=== PATIENT | male | born 1970 | race Caucasian/White ===

== ENCOUNTER 2018-11-08 12:35 | Emergency (ER) | payer OTHER ==
[~2018-11-08] VITALS: Ht 175.3 cm; Wt 99.8 kg
[2018-11-08] MEDS ORDERED: NORCO 5-325 TA1 EAC1 PO (13:14)
[2018-11-08] MEDS ORDERED: MEDROLDOSEPACK PO (13:14)
[2018-11-08] MEDS ORDERED: ZANAFLEX4 MG PO (13:14)
[2018-11-08 14:48] VITALS: BP 136/80
== END 2018-11-08 14:49 | disposition home or self-care (01) ==
LOC: M.ERS 12:35
DX: S39.012A Strain of muscle, fascia and tendon of lower back, initial encounter (principal); M54.41 Lumbago with sciatica, right side; M54.42 Lumbago with sciatica, left side; F41.9 Anxiety disorder, unspecified; F31.9 Bipolar disorder, unspecified; F17.210 Nicotine dependence, cigarettes, uncomplicated; Z88.6 Allergy status to analgesic agent; X50.9XXA Other and unspecified overexertion or strenuous movements or postures, initial encounter; Y93.89 Activity, other specified; Y92.89 Other specified places as the place of occurrence of the external cause; Y99.8 Other external cause status

== ENCOUNTER 2018-11-13 11:16 | Emergency (ER) | payer OTHER ==
[~2018-11-13] VITALS: Ht 175.3 cm; Wt 99.8 kg
[~2018-11-13 11:16] MED LIST: MEDROLDOSEPACK PO; NORCO 5-325 TA1 EAC1 PO; ZANAFLEX4 MG PO
[2018-11-13] MEDS ORDERED: NORCO 5-325 TA1 EAC1 PO (11:49)
[2018-11-13] MEDS ORDERED: ZANAFLEX4 MG PO (11:49)
[2018-11-13 12:28] VITALS: BP 108/80
== END 2018-11-13 12:29 | disposition home or self-care (01) ==
LOC: M.ERS 11:16
DX: M54.5 Low back pain (principal); G89.29 Other chronic pain; F41.9 Anxiety disorder, unspecified; F31.9 Bipolar disorder, unspecified; Z88.6 Allergy status to analgesic agent

== ENCOUNTER 2018-12-16 09:26 | Emergency (ER) | payer OTHER ==
[~2018-12-16] VITALS: Ht 175.3 cm; Wt 102.1 kg
[2018-12-16] MEDS ORDERED: NORCO 5-325 TA1 EAC1 PO (11:12)
[2018-12-16 11:54] VITALS: BP 138/88
== END 2018-12-16 11:55 | disposition home or self-care (01) ==
LOC: M.ERS 09:26
DX: S93.692A Other sprain of left foot, initial encounter (principal); F17.200 Nicotine dependence, unspecified, uncomplicated; F31.9 Bipolar disorder, unspecified; F41.9 Anxiety disorder, unspecified; Z88.6 Allergy status to analgesic agent; W11.XXXA Fall on and from ladder, initial encounter; Y92.89 Other specified places as the place of occurrence of the external cause; Y93.89 Activity, other specified; Y99.8 Other external cause status

== ENCOUNTER 2019-01-20 18:49 | Emergency (ER) | payer OTHER ==
[~2019-01-20] VITALS: Ht 175.3 cm; Wt 102.1 kg
[2019-01-20] MEDS ORDERED: HYDROCODON-ACE1 EAC8 PO (20:08)
[2019-01-20 20:28] VITALS: BP 155/97
== END 2019-01-20 20:28 | disposition home or self-care (01) ==
LOC: M.ERS 18:49
DX: M25.462 Effusion, left knee (principal); F31.9 Bipolar disorder, unspecified; F41.9 Anxiety disorder, unspecified; F17.200 Nicotine dependence, unspecified, uncomplicated; Z86.14 Personal history of Methicillin resistant Staphylococcus aureus infection; Z88.6 Allergy status to analgesic agent; Z88.8 Allergy status to other drugs, medicaments and biological substances

== ENCOUNTER 2019-03-02 14:09 | Inpatient (IN) | payer OTHER ==
[~2019-03-02] VITALS: Ht 152.4 cm; Wt 90.7 kg
[~2019-03-02 14:09] MED LIST changes: +HYDROCODON-ACE1 EAC8 PO
[2019-03-02 14:20] VITALS: BP 186/86
[2019-03-02 14:40] LABS: ABSOLUTE BASOPHILS 0.1 thou/uL (0.0-0.2); ABSOLUTE MONOCYTES 0.6 thou/uL (0.0-1.2); ABSOLUTE NEUTROPHILS 7.6 thou/uL (1.6-8.1); BASOPHILS 1.3 %; EOSINOPHILS 0.2 %; HEMATOCRIT 44.1 % (42.0-52.0); LYMPHOCYTES 19.5 %; MCH 29.2 pg (26.0-34.0); MCHC 34.1 g/dL (28.0-37.0); MCV 85.6 fL (80.0-100.0); MONOCYTES 5.8 %; MPV 7.2 fl. (7.2-11.1); NUCLEATED RBCS 0 /100WBC; PLATELET COUNT* 286 thou/uL (150-400); POLYS 73.2 %; RBC 5.15 mil/uL (4.50-6.00); RDW-CV 13.1 % (10.5-14.5); WBC 10.3 thou/uL (4.0-11.0)
[2019-03-02 14:49] LABS: APTT 23.8 Seconds (25.0-31.3)
[2019-03-02 14:53] LABS: CALCIUM 9.1 mg/dL (8.5-10.1); CREATININE 0.8 mg/dL (0.6-1.3); POTASSIUM 3.8 mmol/L (3.5-5.1)
[2019-03-02 14:55] LABS: URINE BLOOD 3+ (Negative); URINE CLARITY CLOUDY; URINE COLOR YELLOW; URINE GLUCOSE-RANDOM NEGATIVE (Negative); URINE KETONES TRACE (Negative); URINE LEUKOCYTES-REFLEX NEGATIVE (Negative); URINE PROTEIN 1+ (Negative)
[2019-03-02 14:57] LABS: ALBUMIN 3.4 g/dL (3.4-5.0); TOTAL BILIRUBIN 0.4 mg/dL (<0.1-1.0); TOTAL PROTEIN 6.2 g/dL (6.4-8.2)
[2019-03-02 14:59] LABS: ICTOTEST (BILI CONFIRMATORY) Negative (Negative); URINE BILIRUBIN 1+ (Negative); URINE NITRITE-REFLEX POSITIVE (Negative)
[2019-03-02 15:16] LABS: MUCUS 4-6 Moderate strn/LPF (None Seen); URINE RBC >20 Many /HPF (0-2)
[2019-03-02 15:17] LABS: URINE WBC-REFLEX 0-5 Rare /HPF (0-5)
[2019-03-02 15:18] LABS: BACTERIA-REFLEX 1-9 Few /HPF (None Seen); CASTS None Seen /LPF (None Seen); CRYSTALS None Seen /LPF (None Seen); SQUAMOUS NONE SEEN /LPF (0-3)
[2019-03-02 16:15] VITALS: BP 140/77
[2019-03-02 16:38] LABS: AMP/METHAMP Negative (Negative); BARBITURATES Negative (Negative); BENZODIAZEPINES POSITIVE (Negative); COCAINE Negative (Negative); METHADONE Negative (Negative); OPIATES POSITIVE (Negative); PCP Negative (Negative); THC POSITIVE (Negative)
[2019-03-02 17:28] VITALS: BP 137/87
[2019-03-03 00:20] VITALS: BP 119/60
[2019-03-03 04:13] LABS: ABSOLUTE BASOPHILS 0.1 thou/uL (0.0-0.2); ABSOLUTE EOSINOPHILS 0.2 thou/uL (0.0-0.7); ABSOLUTE LYMPHOCYTES 2.4 thou/uL (0.8-5.3); ABSOLUTE MONOCYTES 0.6 thou/uL (0.0-1.2); ABSOLUTE NEUTROPHILS 5.3 thou/uL (1.6-8.1); BASOPHILS 0.6 %; HEMATOCRIT 40.1 % (42.0-52.0); HEMOGLOBIN 13.7 gm/dL (14.0-18.0); LYMPHOCYTES 28.3 %; MCH 29.1 pg (26.0-34.0); MCHC 34.1 g/dL (28.0-37.0); MCV 85.4 fL (80.0-100.0); MONOCYTES 6.7 %; MPV 7.2 fl. (7.2-11.1); NUCLEATED RBCS 0 /100WBC; PLATELET COUNT* 273 thou/uL (150-400); POLYS 62.4 %; RDW-CV 13.1 % (10.5-14.5); WBC 8.5 thou/uL (4.0-11.0)
[2019-03-03 04:32] LABS: CALCIUM 8.4 mg/dL (8.5-10.1); CREATININE 0.8 mg/dL (0.6-1.3); POTASSIUM 3.6 mmol/L (3.5-5.1)
[2019-03-03 07:50] VITALS: BP 145/83
[2019-03-03] MEDS ORDERED: NORCO 5-325 TA1 EAC1 PO ×2 (12:24→12:31)
[2019-03-03] MEDS ORDERED: FLOMAX0.4 MG PO ×2 (12:24→12:31)
[2019-03-03 12:41] VITALS: BP 145/83
== END 2019-03-03 12:54 | disposition home or self-care (01) | DRG 690 ==
LOC: M.ERS 14:09 → M.ORTHSURG 15:34 → M.TBA-ER 15:34 → M.ORTHSURG 16:28
PROVIDERS: Nurse Practitioner Family; ADMIT Internal Medicine
DX: N13.6 Pyonephrosis (principal); F41.9 Anxiety disorder, unspecified; F31.9 Bipolar disorder, unspecified; F17.210 Nicotine dependence, cigarettes, uncomplicated; G89.29 Other chronic pain; M54.9 Dorsalgia, unspecified; Z87.442 Personal history of urinary calculi; Z23 Encounter for immunization; Z86.14 Personal history of Methicillin resistant Staphylococcus aureus infection; Z88.6 Allergy status to analgesic agent; Z88.8 Allergy status to other drugs, medicaments and biological substances; Z79.899 Other long term (current) drug therapy

== ENCOUNTER 2019-03-04 10:26 | Inpatient (IN) | payer OTHER ==
[~2019-03-04] VITALS: Ht 175.3 cm; Wt 90.7 kg
[~2019-03-04 10:26] MED LIST changes: +FLOMAX0.4 MG PO
[2019-03-04 10:44] VITALS: BP 139/85
[2019-03-04 11:50] LABS: URINE BILIRUBIN NEGATIVE (Negative); URINE BLOOD TRACE (Negative); URINE CLARITY CLEAR; URINE COLOR YELLOW; URINE GLUCOSE-RANDOM NEGATIVE (Negative); URINE KETONES NEGATIVE (Negative); URINE LEUKOCYTES-REFLEX TRACE (Negative); URINE NITRITE-REFLEX NEGATIVE (Negative); URINE PROTEIN NEGATIVE (Negative); URINE UROBILINOGEN 0.2 E.U./dl (0.2-1.0)
[2019-03-04 12:02] LABS: BACTERIA-REFLEX 1-9 Few /HPF (None Seen); CASTS None Seen /LPF (None Seen); CRYSTALS None Seen /LPF (None Seen); SQUAMOUS 0-3 Few /LPF (0-3); URINE RBC 0-2 Rare /HPF (0-2); URINE WBC-REFLEX 0-5 Rare /HPF (0-5)
[2019-03-04 12:27] LABS: ABSOLUTE LYMPHOCYTES 1.7 thou/uL (0.8-5.3); ABSOLUTE MONOCYTES 0.6 thou/uL (0.0-1.2); ABSOLUTE NEUTROPHILS 6.9 thou/uL (1.6-8.1); BASOPHILS 0.2 %; EOSINOPHILS 0.5 %; HEMOGLOBIN 14.4 gm/dL (14.0-18.0); LYMPHOCYTES 18.6 %; MCH 29.2 pg (26.0-34.0); MCHC 34.2 g/dL (28.0-37.0); MCV 85.2 fL (80.0-100.0); MONOCYTES 6.3 %; NUCLEATED RBCS 0 /100WBC; PLATELET COUNT* 276 thou/uL (150-400); POLYS 74.4 %; RBC 4.92 mil/uL (4.50-6.00); WBC 9.3 thou/uL (4.0-11.0)
[2019-03-04 12:36] LABS: CALCIUM 8.6 mg/dL (8.5-10.1); CREATININE 0.7 mg/dL (0.6-1.3); POTASSIUM 3.7 mmol/L (3.5-5.1)
[2019-03-04 12:40] LABS: ALBUMIN 3.2 g/dL (3.4-5.0); TOTAL BILIRUBIN 0.4 mg/dL (<0.1-1.0)
--- NOTE | 2019-03-04 13:21 | NUR ---
FLOR NOTIFIED UPON PT RETURN FROM CT. PT CONNECTED TO BP AND PULSE OX MONITOR HE WAS PRIOR TO CT
[2019-03-04 15:57] VITALS: BP 137/62
[2019-03-04 16:22] VITALS: BP 144/71
--- NOTE | 2019-03-04 16:55 | NUR ---
PT ADMITTED WITH KIDNEY STONE. PT C/O PAIN, MEDS GIVEN ORDERED. FALL RISK PRECAUTIONS IN PLACE. HOURLY ROUNDING COMPLETED. WILL CONTINUE TO MONITOR.
[2019-03-04 20:40] VITALS: BP 129/69
--- NOTE | 2019-03-05 04:54 | NUR ---
PATIENT HAS REMAINED ALERT AND ORIENTED X 4 THROUGHOUT THE SHIFT AND RESTING QUIETLY ON HOURLY ROUNDS. NPO AT MIDNIGHT. CONSENT FOR UROLOGY PROCEDURE COMPLETED. URINE HAS BEEN STRAINED WITHOUT STONES RETRIEVED. MEDICATED FOR PAIN Q4H TO GOOD EFFECT. VITAL SIGNS STABLE. CONTINUE TO MONITOR.
[2019-03-05 05:15] LABS: ABSOLUTE EOSINOPHILS 0.2 thou/uL (0.0-0.7); ABSOLUTE LYMPHOCYTES 2.6 thou/uL (0.8-5.3); ABSOLUTE MONOCYTES 0.5 thou/uL (0.0-1.2); ABSOLUTE NEUTROPHILS 4.4 thou/uL (1.6-8.1); BASOPHILS 0.6 %; EOSINOPHILS 2.5 %; HEMATOCRIT 39.9 % (42.0-52.0); HEMOGLOBIN 13.5 gm/dL (14.0-18.0); LYMPHOCYTES 33.8 %; MCH 29.1 pg (26.0-34.0); MCHC 33.8 g/dL (28.0-37.0); MCV 86.1 fL (80.0-100.0); MONOCYTES 6.5 %; MPV 7.4 fl. (7.2-11.1); NUCLEATED RBCS 0 /100WBC; PLATELET COUNT* 283 thou/uL (150-400); POLYS 56.6 %; RBC 4.63 mil/uL (4.50-6.00); RDW-CV 13.1 % (10.5-14.5); WBC 7.8 thou/uL (4.0-11.0)
[2019-03-05 05:29] LABS: CALCIUM 8.2 mg/dL (8.5-10.1); CREATININE 0.9 mg/dL (0.6-1.3); MAGNESIUM 1.8 mg/dL (1.8-2.4)
[2019-03-05 07:45] VITALS: BP 125/66
[2019-03-05 09:10] VITALS: BP 125/66
--- NOTE | 2019-03-05 17:47 | NUR ---
PT A&Ox4. VITALS STABLE. IV PATENT, DOES NOT WANT FLUIDS RUNNING. DENIED N/V. PAIN PARTIALLY CONTROLLED. HAS DECIED TO STAY OVER NIGHT FOR BETTER PAIN CONTROL. UP AD JEFF. CALL LIGHT WITHIN REACH. WILL CONTINUE TO MONITOR.
[2019-03-05 20:22] VITALS: BP 131/63
--- NOTE | 2019-03-06 07:25 | NUR ---
ASSUMED CARE OF PT 03/05/20 AT APPROX 1930, PT A&OX4, PT ON ROOM AIR, VSS, PAIN MEDS REQUESTED AND GIVEN ORDERED, PT SLEPT WELL, PT STATES HE IS READY TO GO HOME, REPORT GIVEN AND CARE TRANSFERED TO DAY SHIFT NURSE 03/06/19 AT 0715.
[2019-03-06 07:35] VITALS: BP 154/90
[2019-03-06] MEDS ORDERED: PYRIDIUM200 MG PO (09:21)
[2019-03-06] MEDS ORDERED: LEVSIN0.125 MG PO (09:21)
[2019-03-06 09:24] VITALS: BP 154/90
[2019-03-06 09:37] VITALS: BP 154/90
[2019-03-06] MEDS ORDERED: CIPRO500 M1 PO (09:42)
[2019-03-06] MEDS ORDERED: PERCOCET 5-3251 EACH PO (09:42)
--- NOTE | 2019-03-06 10:01 | NUR ---
PT GIVEN DISCHARGE INFORMATION, CARE NOTES, AND PRESCRIPTIONS. IV REMOVED. FALL RISK PRECAUTIONS IN PLACE. HOURLY ROUNDING COMPLETED. PT LEFT AMBULATORY WITH NURSING STAFF TO HOME. NICOTINE PATCH REMOVED PRIOR TO DISCHARGE.
[2019-03-06 10:02] VITALS: BP 154/90
--- NOTE | 2019-03-08 17:18 | OP ---
[address] [address] OPERATIVE REPORT Name: NOBLE LUCAS JR Room: [address]#: [id number] Admission: 03/04/19 Attend Phys: Enzo Ruffin MD Discharge: 03/06/19 Date of : 66 Report #: [id number] THIS REPORT FOR: //name// CC: [facility] physician/PCP Enzo Ruffin DATE OF SERVICE: 03/05/2019 PREOPERATIVE DIAGNOSIS: Left mid ureteral calculus. POSTOPERATIVE DIAGNOSIS: Left mid ureteral calculus. PROCEDURES PERFORMED: 1. Cystoscopy with left retrograde pyelogram. 2. Left ureteroscopy with laser lithotripsy. 3. Stone retrieval. 4. Left 4.8 x 28 double-J ureteral stent placement. SURGEON: Sid Dickens M.D. ANESTHESIA: General endotracheal. BRIEF HISTORY: The patient is a 48-year-old male who presented to [facility] a few days ago with left-sided flank pain. CT imaging at that time demonstrated the presence of a 4 mm left mid ureteral calculus. He was discharged home, but then returned secondary to poor pain control. Given the above, options for management, including ureteroscopic extraction were discussed with the patient. He wished to proceed with surgery. He is scheduled today for cystoscopy with left retrograde pyelogram, left ureteroscopy with possible laser lithotripsy, stone retrieval and stent placement. The risks of the procedure including the risks of bleeding, infection, damage to surrounding structures, need for additional procedures, and anesthetic risks were discussed with the patient and he wished to proceed. PROCEDURE IN DETAIL: The risks and benefits of surgery were discussed with the patient and he wished to proceed. Informed consent was obtained and the patient was transferred to the operating room where he was laid supine on the operating room table. After the induction of adequate general endotracheal anesthesia, the patient's legs were placed in a modified dorsal lithotomy position, taking care to pad all pressure points and avoid any hyperextension or hyperflexion of his joints. He had previously received empiric antibiotic coverage. At this time, the genitalia were prepped and draped in the usual sterile fashion. A timeout was then performed to ensure correct patient and procedure. A 22-Kyrgyz cystoscope sheath with a 30-degree lens was lubricated and advanced under direct vision and irrigation into the anterior urethra. [place] [address] OPERATIVE REPORT Name: NOBLE LUCAS JR Room: [address]#: [id number] Admission: 03/04/19 Attend Phys: Enzo Ruffin MD Discharge: 03/06/19 Date of : 66 Report #: [id number] urethral abnormalities identified. As the prostatic urethra was approached, there was noted to be mild to moderate lateral lobe enlargement without significant visual obstruction. There is minimal, if any, median lobe enlargement. The cystoscope was advanced into the bladder where it was disarticulated and the bladder was drained. Cystoscopy was performed under direct vision and irrigation with both a 30-degree and 70-degree lens. There were no intravesical calculi. Systematic panendoscopy revealed his ureteral orifices to be in their normal anatomic location. There were no papillary bladder tumors or suspicious mucosal lesions identified. At this time, a 5-Kyrgyz Pollack catheter was placed into the patient's left ureteral orifice and a left retrograde pyelogram was performed. Contrast could be seen filling the distal and mid ureter. There was a small filling defect in the mid ureter consistent with the stone previously observed on CT imaging. Contrast did progress beyond the stone and filled a minimally dilated left collecting system. At this time, a 0.035 sensor wire was advanced into the left ureter and up into the kidney under fluoroscopic guidance. The bladder was drained and the cystoscope was removed. A rigid ureteroscope was then advanced under direct vision and irrigation without difficulty into the left ureter. The ureteroscope was advanced to the mid ureter, but not far enough for identification of the stone. Given the above, a second wire, a ZIPwire, was advanced through the ureteroscope until it was seen to coil within the left collecting system alongside the previously placed sensor wire. The rigid ureteroscope was removed, and a flexible ureteroscope was advanced over the working wire into the ureter without difficulty. The ureteroscope was able to be advanced to the mid ureter where the patient's stone was encountered. The stone was spiculated and irregular. A 200 micron laser fiber was advanced through the ureteroscope and laser lithotripsy was performed, fragmenting the stone into two smaller pieces. A 0 tip nitinol basket was then advanced through the ureteroscope and was used to grasp both fragments. The stone fragments were able to be removed without difficulty and were passed off the table for pathologic analysis. The flexible ureteroscope was then readvanced through the urethra into the bladder. The ureteroscope was advanced into the left ureter and up into the kidney without difficulty under direct vision and pressure flow irrigation. Renoscopy was performed, inspecting each of the patient's calices meticulously. There were no stones or stone fragments identified within the left collecting system. The ureteroscope was then withdrawn, the length of the ureter from the UPJ towards the UVJ. There were no remaining stone fragments within the ureter. Prior to withdrawing the ureteroscope entirely, a retrograde pyelogram was repeated, which demonstrated patency and integrity of the ureter and collecting system and delineated the collecting system for stent placement. The ureteroscope was removed and a 4.8 x 28 double-J ureteral stent was advanced over the safety wire and into position using a metal tipped pusher. The wire was withdrawn, deploying the stent. A good coil of the stent was identified within the left renal pelvis under fluoroscopy and a good coil of the stent was identified within the bladder under direct vision with the cystoscope. The cystoscope was disarticulated and the bladder was drained. [place] [address] OPERATIVE REPORT Name: NOBLE LUCAS JR Room: [address]#: [id number] Admission: 03/04/19 Attend Phys: Enzo Ruffin MD Discharge: 03/06/19 Date of : 66 Report #: [id number] patient's urethra was anesthetized with 2% lidocaine jelly, and a B and O suppository was placed per rectum. The patient was then returned to a supine position, awakened from anesthesia, and transferred to the postoperative care unit in stable condition. The patient tolerated the procedure well. COMPLICATIONS: None. ESTIMATED BLOOD LOSS: None. IV FLUIDS: Crystalloid. DRAINS: Left 4.8 x 28 double-J ureteral stent. SPECIMENS: Left ureteral stone fragments. FINDINGS: 1. Normal anterior urethra. 2. Mild to moderate bilobar prostatic hyperplasia without significant visual obstruction. Minimal, if any, median lobe enlargement. 3. No gross bladder wall pathology. No papillary bladder tumors or suspicious mucosal lesions identified. 4. Left retrograde pyelogram demonstrating a small faint filling defect within the left mid ureter consistent with the stone previously seen on CT imaging. 5. Left ureteroscopy demonstrating a spiculated, irregular left mid ureteral calculus, fragmented with laser lithotripsy and removed. 6. Left 4.8 x 28 double-J ureteral stent in good position by fluoroscopy and direct vision. <ELECTRONICALLY SIGNED> By: Sid Dickens MD 03/08/19 1718 [id number] Dickens MD /nt
== END 2019-03-06 10:13 | disposition home or self-care (01) | DRG 661 ==
LOC: M.ERS 10:26 → M.ORTHSURG 14:39 → M.TBA-ER 14:39 → M.ORTHSURG 15:49
PROVIDERS: Nurse Practitioner Family; ADMIT Family Medicine
PROC: 0TC78ZZ Extirpation of Matter from Left Ureter, Via Natural or Artificial Opening Endoscopic (ICD-10-PCS; principal; 2019-03-05)
PROC: BT1F1ZZ Fluoroscopy of Left Kidney, Ureter and Bladder using Low Osmolar Contrast (ICD-10-PCS; principal; 2019-03-05)
PROC: 0T778DZ Dilation of Left Ureter with Intraluminal Device, Via Natural or Artificial Opening Endoscopic (ICD-10-PCS; principal; 2019-03-05)
DX: N13.2 Hydronephrosis with renal and ureteral calculous obstruction (principal); F41.9 Anxiety disorder, unspecified; F31.9 Bipolar disorder, unspecified; F17.210 Nicotine dependence, cigarettes, uncomplicated; G89.29 Other chronic pain; M54.9 Dorsalgia, unspecified; Z88.6 Allergy status to analgesic agent; Z88.8 Allergy status to other drugs, medicaments and biological substances; Z98.1 Arthrodesis status

== ENCOUNTER 2019-04-28 15:54 | Emergency (ER) | payer OTHER ==
[~2019-04-28] VITALS: Ht 175.3 cm; Wt 95.3 kg
[~2019-04-28 15:54] MED LIST changes: +CIPRO500 M1 PO; +LEVSIN0.125 MG PO; +PERCOCET 5-3251 EACH PO; +PYRIDIUM200 MG PO
[2019-04-28 16:53] LABS: URINE BILIRUBIN NEGATIVE (Negative); URINE BLOOD NEGATIVE (Negative); URINE CLARITY CLEAR; URINE COLOR YELLOW; URINE GLUCOSE-RANDOM NEGATIVE (Negative); URINE KETONES NEGATIVE (Negative); URINE NITRITE-REFLEX NEGATIVE (Negative); URINE PROTEIN NEGATIVE (Negative); URINE SPECIFIC GRAVITY >= 1.030 (1.005-1.030); URINE UROBILINOGEN 0.2 E.U./dl (0.2-1.0)
[2019-04-28 16:54] LABS: URINE LEUKOCYTES-REFLEX NEGATIVE (Negative)
[2019-04-28 18:54] LABS: ABSOLUTE BASOPHILS 0.1 thou/uL (0.0-0.2); ABSOLUTE EOSINOPHILS 0.3 thou/uL (0.0-0.7); ABSOLUTE LYMPHOCYTES 3.3 thou/uL (0.8-5.3); ABSOLUTE MONOCYTES 0.8 thou/uL (0.0-1.2); ABSOLUTE NEUTROPHILS 5.5 thou/uL (1.6-8.1); BASOPHILS 1.1 %; EOSINOPHILS 2.5 %; HEMATOCRIT 42.9 % (42.0-52.0); HEMOGLOBIN 14.6 gm/dL (14.0-18.0); LYMPHOCYTES 33.2 %; MCHC 33.9 g/dL (28.0-37.0); MCV 85.4 fL (80.0-100.0); MONOCYTES 7.9 %; MPV 6.7 fl. (7.2-11.1); NUCLEATED RBCS 0 /100WBC; PLATELET COUNT* 359 thou/uL (150-400); POLYS 55.3 %; RBC 5.03 mil/uL (4.50-6.00); RDW-CV 13.9 % (10.5-14.5)
[2019-04-28 19:06] LABS: CALCIUM 7.4 mg/dL (8.5-10.1); CREATININE 0.9 mg/dL (0.6-1.3); POTASSIUM 4.7 mmol/L (3.5-5.1)
[2019-04-28 19:11] LABS: ALBUMIN 2.8 g/dL (3.4-5.0); TOTAL BILIRUBIN 0.2 mg/dL (<0.1-1.0); TOTAL PROTEIN 5.4 g/dL (6.4-8.2)
[2019-04-28] MEDS ORDERED: IBUPROFEN 800800 M1 PO (19:39)
[2019-04-28] MEDS ORDERED: ONDANSETRON HCL4 M2 PO (19:39)
[2019-04-28] MEDS ORDERED: NORCO 5-325 TA1 EAC1 PO (19:39)
[2019-04-28 20:07] VITALS: BP 126/71
== END 2019-04-28 20:08 | disposition home or self-care (01) ==
LOC: M.ERS 15:54
PROVIDERS: Nurse Practitioner Family
DX: R10.32 Left lower quadrant pain (principal); Z87.442 Personal history of urinary calculi